=== PATIENT | female | born 2000 | race Caucasian/White ===

== ENCOUNTER 2021-03-29 10:22 | Inpatient (IN) | payer OTHER, SELFPAY ==
[~2021-03-29] VITALS: Ht 147.3 cm; Wt 61.7 kg
[~2021-03-29 10:22] MED LIST: PNV91TAB8 PO
[2021-03-29] MEDS ORDERED: ONDANSETRON 4 MG/2 ML VIAL IVP PRN (10:25)
[2021-03-29] MEDS ORDERED: OXYTOCIN 20 UNITS in LACTATED RINGERS 1,000 ML IV SCH (10:25)
[2021-03-29] MEDS ORDERED: MORPHINE SULFATE 10 MG/ML VIAL IVP PRN (10:40)
[2021-03-29 11:11] LABS: BASOPHILS % (AUTO) 0.3 % (0.0-2.0); HEMATOCRIT 33.8 % (36-48); HEMOGLOBIN 11.3 g/dL (12.0-16.0); LYMPHOCYTES # (AUTO) 0.8 K/uL (2.5-16.5); LYMPHOCYTES % (AUTO) 10.5 % (20.5-51.1); MEAN CORPUSCULAR HEMOGLOBIN 28 pg (27-31); MEAN CORPUSCULAR HGB CONC 33 g/dL (33-37); MEAN CORPUSCULAR VOLUME 84.9 fL (80-94); MONOCYTES # (AUTO) 0.7 K/uL (0.8-1.0); MONOCYTES % (AUTO) 8.7 % (1.7-9.3); NEUTROPHILS # (AUTO) 6.3 K/uL (1.8-7.7); NEUTROPHILS % (AUTO) 80.5 % (42.2-75.2); PLATELET COUNT (AUTO) 207 K/uL (140-450); RED BLOOD CELL COUNT(AUTO) 3.99 MIL/uL (4.20-5.40); RED CELL DISTRIBUTION WIDTH 14.1 % (11.6-13.7); WHITE BLOOD COUNT (AUTO) 7.9 K/uL (4.8-10.8)
[2021-03-29 11:32] LABS: ALBUMIN 2.6 g/dL (3.4-5.0); ANION GAP 16.3 (8-16); CARBON DIOXIDE 18.3 mmol/L (21-32); CREATININE 0.5 mg/dL (0.6-1.3); POTASSIUM 3.6 mmol/L (3.5-5.1); TOTAL BILIRUBIN 0.5 mg/dL (0.0-1.0)
[2021-03-29] MEDS ORDERED: ROPIVACAINE 0.2%/NS PREMIX 200 ML EPI ONE (12:07)
[2021-03-29] MEDS: LACTATED RINGERS 1,000 ML IV SCH ×2 (12:25→23:18)
[2021-03-29 14:16] LABS: BILIRUBIN,URINE NEGATIVE (NEGATIVE); BLOOD, URINE 3+ (NEGATIVE); COLOR,URINE YELLOW (YELLOW); LEUKOCYTE ESTERASE ,URINE 2+ (NEGATIVE); NITRITE, URINE NEGATIVE (NEGATIVE); UGLUCOSE NEGATIVE (NEGATIVE)
[2021-03-29 14:27] LABS: APPEARANCE,URINE HAZY (CLEAR)
[2021-03-29 16:04] LABS: RBC,URINE 11-20 (MOD) /HPF (0-5)
[2021-03-29 16:05] LABS: WBC,URINE 20-60 /HPF (0-5)
[2021-03-29] MEDS ORDERED: ACETAMINOPHEN 325 MG TAB ONE (17:24)
[2021-03-29] MEDS ORDERED: ACETAMINOPHEN 325 MG TAB PO PRN (17:30)
[2021-03-29] MEDS ORDERED: GENTAMICIN PER PHARMACY MC PRN (19:35)
[2021-03-29] MEDS ORDERED: AMPICILLIN 2,000 MG VIAL ONE (19:44)
[2021-03-29] MEDS ORDERED: GENTAMICIN 80 MG/2 ML VIAL ONE (19:56)
[2021-03-29] MEDS ORDERED: OXYTOCIN 20 UNITS/LR PREMIX 1,000 ML IV ONE (20:01)
[2021-03-29] MEDS: GENTAMICIN 80 MG in DEXTROSE 5% 100 ML IV SCH (21:02)
[2021-03-30] MEDS ORDERED: AMPICILLIN 2,000 MG VIAL ONE ×2 (01:01→07:39)
[2021-03-30] MEDS: AMPICILLIN 2,000 MG in NACL 0.9% 100 ML IV SCH ×2 (01:42→07:49)
[2021-03-30] MEDS ORDERED: CARBOPROST 250 MCG/ML AMP IM ONE (03:26)
[2021-03-30] MEDS ORDERED: BENZOCAINE/MENTHOL 20%-0.5% 60 GM CAN TP PRN (03:35)
[2021-03-30] MEDS ORDERED: IBUPROFEN 800 MG TAB PO PRN (03:35)
[2021-03-30] MEDS ORDERED: MEASLES, MUMPS, AND RUBELLA 1 VIAL SQVAC ONE (03:35)
[2021-03-30] MEDS ORDERED: OXYTOCIN 10 UNITS/ML VIAL IM PRN (03:35)
[2021-03-30] MEDS ORDERED: GENTAMICIN 80 MG/2 ML VIAL ONE (04:57)
[2021-03-30] MEDS: GENTAMICIN 80 MG in DEXTROSE 5% 100 ML IV SCH (05:14)
--- NOTE | 2021-03-30 08:48 | NUR ---
PATIENT HAS BEEN SCREENED AND CATEGORIZED LOW NUTRITION RISK. PATIENT WILL BE SEEN WITHIN 7 DAYS OF ADMISSION. 04/04/[address]
[2021-03-31 06:33] LABS: HEMATOCRIT 24.8 % (36-48); HEMOGLOBIN 8.4 g/dL (12.0-16.0)
== END 2021-04-01 14:00 | disposition home or self-care (01) | DRG 560 ==
LOC: MLD 10:22 → MFCC 03-30 14:10
PROVIDERS: ADMIT Obstetrics & Gynecology; ATTEND Obstetrics & Gynecology
PROC: 10E0XZZ Delivery of Products of Conception, External Approach (ICD-10-PCS; principal; 2021-03-30)
PROC: 10907ZC Drainage of Amniotic Fluid, Therapeutic from Products of Conception, Via Natural or Artificial Opening (ICD-10-PCS; 2021-03-30)
PROC: 0HQ9XZZ Repair Perineum Skin, External Approach (ICD-10-PCS; 2021-03-30)
PROC: 3E0R3BZ Introduction of Anesthetic Agent into Spinal Canal, Percutaneous Approach (ICD-10-PCS; 2021-03-30)
PROC: 00HU33Z Insertion of Infusion Device into Spinal Canal, Percutaneous Approach (ICD-10-PCS; 2021-03-30)
DX: O41.1230 Chorioamnionitis, third trimester, not applicable or unspecified (principal); Z37.0 Single live birth; O62.2 Other uterine inertia; O70.0 First degree perineal laceration during delivery; O77.0 Labor and delivery complicated by meconium in amniotic fluid; Z3A.40 40 weeks gestation of pregnancy; Z20.822 Contact with and (suspected) exposure to COVID-19
CPT/HCPCS: 36415; 51702; 59409; 76815; 80053; 81001; 85018; 85025; 86592; 86886; 86900; 86901; 87086; J0290; J1580; J2590; J2795; J3490; J7060; Q0092